=== PATIENT | male | born 1955 | race Caucasian/White ===

== ENCOUNTER 2020-09-14 10:42 | Emergency (ER) | payer OTHER ==
[~2020-09-14] VITALS: Ht 190.5 cm; Wt 90.7 kg
[2020-09-14] MEDS ORDERED: MAXIMUM D3325 MCG PO (11:09)
[2020-09-14] MEDS ORDERED: SIMVASTATIN20 MG PO (11:09)
[2020-09-14] MEDS ORDERED: LOSARTAN POTASS50 MG PO (11:09)
[2020-09-14] MEDS ORDERED: METFORMIN HCL500 M4 PO (11:09)
[2020-09-14] MEDS ORDERED: KETO10TA2 PO (15:16)
[2020-09-14] MEDS ORDERED: TAMS0.4C PO (15:16)
[2020-09-14] MEDS ORDERED: CIPRO500 MG PO (15:16)
== END 2020-09-14 15:33 | disposition home or self-care (01) ==
LOC: ER 10:42
DX: N20.1 Calculus of ureter (principal); N21.0 Calculus in bladder

== ENCOUNTER 2023-06-20 10:59 | Emergency (ER) | payer OTHER ==
[~2023-06-20] VITALS: Ht 182.9 cm; Wt 108.9 kg
[~2023-06-20 10:59] MED LIST: CIPRO500 MG PO; KETO10TA2 PO; LOSARTAN POTASS50 MG PO; MAXIMUM D3325 MCG PO; METFORMIN HCL500 M4 PO; SIMVASTATIN20 MG PO; TAMS0.4C PO
[2023-06-20 14:05] LABS: PH,URINE 5.5 (5.0-8.0); URINE APPEARANCE Cloudy; URINE BACTERIA 3881.9 uL (0.0-1933); URINE BILIRRUBIN Negative (NEGATIVE); URINE BLOOD Negative; URINE COLOR Yellow; URINE EPITHELIAL CELLS 3.8 uL (0.0-38.8); URINE GLUCOSE Negative (NEGATIVE); URINE LEUKOCYTE Large; URINE NITRATE Positive; URINE PROTEIN Negative (NEGATIVE); URINE WBC 897.9 uL (0.0-23.2)
[2023-06-20 14:17] LABS: URINE RBC 1.4 uL (0.0-20.8)
== END 2023-06-20 15:31 | disposition home or self-care (01) ==
LOC: ER 10:59
DX: N39.0 Urinary tract infection, site not specified (principal); R10.84 Generalized abdominal pain

== ENCOUNTER 2023-07-19 15:04 | Inpatient (IN) | payer OTHER ==
[~2023-07-19] VITALS: Ht 190.5 cm; Wt 108.9 kg
[2023-07-19 16:44] LABS: HEMATOCRIT 42.9 % (39.0-48.0); HEMOGLOBIN 14.1 g/dL (13-16.00); MEAN CELL VOLUME 88.9 fL (80.0-100.00); MEAN CORPUSCULAR HEMOGLOBIN 29.3 pg (27.00-32.0); MEAN CORPUSCULAR HGB CONC 32.9 g/dl (32.0-36.0); PLATELET COUNT 236 K/uL (150-450); RED BLOOD COUNT 4.83 M/uL (4.00-6.00)
[2023-07-19 16:57] LABS: INR 1.01; PARTIAL THROMBOPLASTIN TIME 27.6 SECONDS (22.0-34.0); PROTHROMBIN TIME 10.6 SECONDS (9.0-11.5)
[2023-07-19 16:59] LABS: CALCIUM 8.8 mg/dL (8.5-10.1); CREATININE SERUM 1.25 mg/dL (0.70-1.30); GFR 57.1; POTASSIUM 4.02 mEq/L (3.5-5.1)
[2023-07-19 17:19] LABS: PH,URINE 7.5 (5.0-8.0); URINE APPEARANCE Clear; URINE BILIRRUBIN Negative (NEGATIVE); URINE BLOOD Negative; URINE COLOR Yellow; URINE GLUCOSE Negative (NEGATIVE); URINE LEUKOCYTE Moderate; URINE NITRATE Positive; URINE PROTEIN 30 (NEGATIVE)
[2023-07-19 17:22] LABS: URINE EPITHELIAL CELLS 6.4 uL (0.0-38.8); URINE RBC 2.4 uL (0.0-20.8)
[2023-07-20 06:35] LABS: INR 1.03; PARTIAL THROMBOPLASTIN TIME 27.8 SECONDS (22.0-34.0); PROTHROMBIN TIME 10.8 SECONDS (9.0-11.5)
[2023-07-20 06:39] LABS: HEMATOCRIT 41.4 % (39.0-48.0); HEMOGLOBIN 14.1 g/dL (13-16.00); MEAN CELL VOLUME 87.2 fL (80.0-100.00); MEAN CORPUSCULAR HEMOGLOBIN 29.8 pg (27.00-32.0); MEAN CORPUSCULAR HGB CONC 34.1 g/dl (32.0-36.0); PLATELET COUNT 216 K/uL (150-450); RED BLOOD COUNT 4.74 M/uL (4.00-6.00); RED CELL DISTRIBUTION WIDTH 14.1 % (11.5-14.5)
[2023-07-20 08:15] LABS: ALBUMIN 3.2 gm/dL (3.4-5.0); BILIRUBIN TOTAL 0.65 mg/dL (0.3-1.2); BILIRUBIN,CONJUGATED 0.19 mg/dL (0.0-0.2); BILIRUBIN,UNCONJUGATED 0.46 mg/dL (0.0-0.6); CALCIUM 8.8 mg/dL (8.5-10.1); CREATININE SERUM 0.96 mg/dL (0.70-1.30); GFR 77.43; GLOBULINA 3.2 G/DL (2.4-3.5); POTASSIUM 3.98 mEq/L (3.5-5.1); TOTAL PROTEIN 6.4 gm/dL (6.4-8.2)
[2023-07-20 08:16] LABS: C-REACTIVE PROTEIN 0.75 MG/DL (0.00-0.29)
[2023-07-22 08:27] LABS: URINE APPEARANCE Clear; URINE BILIRRUBIN Negative (NEGATIVE); URINE BLOOD Negative; URINE COLOR Yellow; URINE GLUCOSE Negative (NEGATIVE); URINE LEUKOCYTE Small; URINE NITRATE Negative; URINE PROTEIN Negative (NEGATIVE)
[2023-07-22 08:32] LABS: URINE BACTERIA 15.1 uL (0.0-1933); URINE EPITHELIAL CELLS 4.3 uL (0.0-38.8); URINE WBC 15.1 uL (0.0-23.2)
[2023-07-22 08:50] LABS: URINE RBC 0.4 uL (0.0-20.8)
[2023-07-26] MEDS ORDERED: LEVOFLOXACIN750 MG PO (11:33)
[2023-07-26] MEDS ORDERED: PEPCID AC20 MG PO (11:33)
[2023-07-26] MEDS ORDERED: INTESTINEX680 M2 PO (11:33)
== END 2023-07-26 14:19 | disposition home or self-care (01) | DRG 540 ==
LOC: ER 15:04 → SEC-K 23:47 → MEDI 23:47
PROVIDERS: General Practice; ADMIT Internal Medicine; ATTEND Internal Medicine
PROC: BQ30YZZ Magnetic Resonance Imaging (MRI) of Right Hip using Other Contrast (ICD-10-PCS; 2023-07-20)
PROC: C710YZZ Planar Nuclear Medicine Imaging of Bone Marrow using Other Radionuclide (ICD-10-PCS; 2023-07-21)
PROC: 02HV33Z Insertion of Infusion Device into Superior Vena Cava, Percutaneous Approach (ICD-10-PCS; principal; 2023-07-26)
DX: M86.172 Other acute osteomyelitis, left ankle and foot (principal); L97.419 Non-pressure chronic ulcer of right heel and midfoot with unspecified severity; N39.0 Urinary tract infection, site not specified; L97.529 Non-pressure chronic ulcer of other part of left foot with unspecified severity; L08.9 Local infection of the skin and subcutaneous tissue, unspecified; B95.61 Methicillin susceptible Staphylococcus aureus infection as the cause of diseases classified elsewhere; B95.2 Enterococcus as the cause of diseases classified elsewhere; B96.89 Other specified bacterial agents as the cause of diseases classified elsewhere; E11.621 Type 2 diabetes mellitus with foot ulcer; Z79.4 Long term (current) use of insulin; I10 Essential (primary) hypertension; E11.69 Type 2 diabetes mellitus with other specified complication; Z20.822 Contact with and (suspected) exposure to COVID-19
CPT/HCPCS: 73725

== ENCOUNTER 2023-09-10 04:26 | Emergency (ER) | payer OTHER ==
[~2023-09-10] VITALS: Ht 190.5 cm; Wt 108.9 kg
[~2023-09-10 04:26] MED LIST changes: +INTESTINEX680 M2 PO; +LEVOFLOXACIN750 MG PO; +PEPCID AC20 MG PO
[2023-09-10 06:35] LABS: PH,URINE 6.5 (5.0-8.0); URINE APPEARANCE Clear; URINE BILIRRUBIN Negative (NEGATIVE); URINE BLOOD NHT; URINE COLOR Dark Yellow; URINE GLUCOSE Negative (NEGATIVE); URINE LEUKOCYTE Small; URINE NITRATE Negative; URINE PROTEIN 30 (NEGATIVE)
[2023-09-10 06:38] LABS: URINE BACTERIA 118.4 uL (0.0-1933); URINE EPITHELIAL CELLS 4.1 uL (0.0-38.8); URINE RBC 33.9 uL (0.0-20.8); URINE WBC 174.3 uL (0.0-23.2)
[2023-09-10 06:51] LABS: HEMATOCRIT 39.4 % (39.0-48.0); HEMOGLOBIN 13.3 g/dL (13-16.00); MEAN CELL VOLUME 86.2 fL (80.0-100.00); MEAN CORPUSCULAR HEMOGLOBIN 29.1 pg (27.00-32.0); MEAN CORPUSCULAR HGB CONC 33.8 g/dl (32.0-36.0); PLATELET COUNT 233 K/uL (150-450); RED BLOOD COUNT 4.57 M/uL (4.00-6.00); RED CELL DISTRIBUTION WIDTH 13.7 % (11.5-14.5)
[2023-09-10 07:09] LABS: CALCIUM 8.6 mg/dL (8.5-10.1); CREATININE SERUM 1.04 mg/dL (0.70-1.30); GFR 70.6; POTASSIUM 3.95 mEq/L (3.5-5.1)
== END 2023-09-10 08:20 | disposition home or self-care (01) ==
LOC: ER 04:27
DX: N13.9 Obstructive and reflux uropathy, unspecified (principal)
CPT/HCPCS: 36415; 96365; 96366; 99282; J0744; J1885

== ENCOUNTER 2023-09-14 13:51 | Emergency (ER) | payer OTHER ==
[~2023-09-14] VITALS: Ht 190.5 cm; Wt 108.9 kg
[2023-09-14] MEDS ORDERED: CIPRO100 MG (14:03)
== END 2023-09-14 16:39 | disposition home or self-care (01) ==
LOC: ER 13:53
DX: Z97.8 Presence of other specified devices (principal); R53.81 Other malaise

== ENCOUNTER 2024-10-08 11:50 | Emergency (ER) | payer OTHER ==
[~2024-10-08] VITALS: Ht 190.5 cm; Wt 95.3 kg
[~2024-10-08 11:50] MED LIST changes: +CIPRO100 MG
[2024-10-08] MEDS ORDERED: CEFTRIAXONE SODIUM 2,000 MG VIAL IV ONE (12:15)
[2024-10-08] MEDS ORDERED: CEFTRIAXONE SODIUM 2,000 MG VIAL ONE (12:29)
[2024-10-08 12:42] LABS: HEMATOCRIT 39.1 % (39.0-48.0); HEMOGLOBIN 12.9 g/dL (13-16.00); MEAN CELL VOLUME 88.2 fL (80.0-100.00); MEAN CORPUSCULAR HEMOGLOBIN 29.1 pg (27.00-32.0); PLATELET COUNT 430 K/uL (150-450); RED BLOOD COUNT 4.43 M/uL (4.00-6.00); RED CELL DISTRIBUTION WIDTH 13.8 % (11.5-14.5)
== END 2024-10-08 13:46 | disposition home or self-care (01) ==
LOC: ER 11:53
PROVIDERS: Emergency Medicine
DX: E10.621 Type 1 diabetes mellitus with foot ulcer (principal); L97.528 Non-pressure chronic ulcer of other part of left foot with other specified severity; Z79.4 Long term (current) use of insulin; Z79.85 Long-term (current) use of injectable non-insulin antidiabetic drugs
CPT/HCPCS: 11042; 36415; 71046; 96365; 99283; J0696

== ENCOUNTER 2024-10-12 10:38 | Outpatient (CLI) | payer OTHER | END 2024-10-12 11:00 | disposition home or self-care (01) | LOC: WOUND MED 10:38 | PROVIDERS: ATTEND Specialist | DX: E11.621 Type 2 diabetes mellitus with foot ulcer (principal); L97.522 Non-pressure chronic ulcer of other part of left foot with fat layer exposed; Z79.4 Long term (current) use of insulin | CPT/HCPCS: 11042; A4927; A6219; A6223 ==

== ENCOUNTER 2024-10-19 11:52 | Inpatient (IN) | payer OTHER ==
[~2024-10-19] VITALS: Ht 190.5 cm; Wt 95.3 kg
[2024-10-19] MEDS ORDERED: SIMVASTATIN40 MG PO (12:28)
[2024-10-19] MEDS ORDERED: TAMSULOSIN HCL0.4 MG PO (12:28)
[2024-10-19] MEDS ORDERED: CIPROFLOXACIN IN 5 % DEXTROSE 400 MG/200 ML PIGGYBAG IV ONE ×2 (12:59→13:00)
[2024-10-19] MEDS ORDERED: 0.9 % SODIUM CHLORIDE 1,000 ML IV SCH ×2 (13:00→19:15)
[2024-10-19 13:54] LABS: HEMATOCRIT 41.5 % (39.0-48.0); HEMOGLOBIN 13.6 g/dL (13-16.00); MEAN CELL VOLUME 87.5 fL (80.0-100.00); MEAN CORPUSCULAR HEMOGLOBIN 28.6 pg (27.00-32.0); MEAN CORPUSCULAR HGB CONC 32.7 g/dl (32.0-36.0); PLATELET COUNT 347 K/uL (150-450); RED BLOOD COUNT 4.75 M/uL (4.00-6.00); RED CELL DISTRIBUTION WIDTH 14.4 % (11.5-14.5)
[2024-10-19 14:21] LABS: CALCIUM 9.1 mg/dL (8.5-10.1); CREATININE SERUM 0.86 mg/dL (0.70-1.30); GFR 87.66; POTASSIUM 3.54 mEq/L (3.5-5.1)
[2024-10-19 15:07] LABS: INR 1.1; PARTIAL THROMBOPLASTIN TIME 29.3 SECONDS (22.0-34.0); PROTHROMBIN TIME 11.9 SECONDS (9.0-11.5)
[2024-10-19 15:41] LABS: URINE APPEARANCE Clear; URINE BILIRRUBIN Negative (NEGATIVE); URINE BLOOD Negative; URINE COLOR Yellow; URINE GLUCOSE Negative (NEGATIVE); URINE KETONE Negative (NEGATIVE); URINE LEUKOCYTE Small; URINE NITRATE Negative; URINE PROTEIN Trace (NEGATIVE); URINE UROBILINOGEN 0.2 E.U./dl
[2024-10-19 15:44] LABS: URINE BACTERIA 46.5 uL (0.0-1933); URINE EPITHELIAL CELLS 3.4 uL (0.0-38.8); URINE RBC 5.1 uL (0.0-20.8); URINE WBC 76.8 uL (0.0-23.2)
[2024-10-19 16:32] LABS: URINE CAST 0.14 uL (0.0-1.40)
[2024-10-19] MEDS ORDERED: PIPERACILLIN/TAZOBACTAM SODIUM 3.375 GM in DEXTROSE 5 % IN WATER 100 ML IV SCH (19:26)
[2024-10-19] MEDS ORDERED: DEXTROSE 50 % IN WATER 0.5 G/ML DISP.SYRIN IV PRN (19:30)
[2024-10-19] MEDS ORDERED: INSULIN LISPRO 1,000 UNIT/10 ML UNITS SUBCUTANEO PRN (19:30)
[2024-10-19] MEDS ORDERED: ACETAMINOPHEN 500 MG GEL..CAP PO PRN (19:30)
[2024-10-19 22:12] LABS: INR 1.1; PARTIAL THROMBOPLASTIN TIME 29.5 SECONDS (22.0-34.0); PROTHROMBIN TIME 11.9 SECONDS (9.0-11.5)
[2024-10-20 01:12] VITALS: BP 139/75; O2SAT 95
[2024-10-20] MEDS ORDERED: 0.9 % SODIUM CHLORIDE 10 ML VIAL IJ ONE (07:44)
[2024-10-20] MEDS ORDERED: LOSARTAN POTASSIUM 50 MG TABLET PO SCH (09:00)
[2024-10-20] MEDS ORDERED: ENOXAPARIN SODIUM 40 MG/0.4 ML SYRINGE SUBCUTANEO SCH (09:00)
[2024-10-20] MEDS ORDERED: FAMOTIDINE/PF 20 MG in 0.9 % SODIUM CHLORIDE 8 ML IV PUSH SCH (09:00)
[2024-10-20] MEDS ORDERED: TAMSULOSIN HCL 0.4 MG CAP PO SCH (09:00)
[2024-10-20 09:22] VITALS: BP 160/87; O2SAT 95
[2024-10-20] MEDS ORDERED: SIMVASTATIN 20 MG TABLET PO SCH (17:00)
[2024-10-20] MEDS ORDERED: CEFEPIME HCL 2,000 MG VIAL IV SCH (17:00)
[2024-10-20 18:03] VITALS: BP 152/78; O2SAT 97
[2024-10-20] MEDS ORDERED: VANCOMYCIN HCL 1,000 MG VIAL IV SCH (21:00)
[2024-10-21 01:38] VITALS: BP 129/84; O2SAT 98
[2024-10-21 09:34] VITALS: BP 141/77; O2SAT 95
[2024-10-21] MEDS ORDERED: levoFLOXacin 750 MG TABLET PO SCH (17:00)
[2024-10-21 17:13] VITALS: BP 132/70; O2SAT 97
[2024-10-22 01:15] VITALS: BP 138/72
[2024-10-22 05:35] LABS: HEMATOCRIT 42.6 % (39.0-48.0); MEAN CELL VOLUME 87.6 fL (80.0-100.00); MEAN CORPUSCULAR HEMOGLOBIN 28.8 pg (27.00-32.0); MEAN CORPUSCULAR HGB CONC 32.8 g/dl (32.0-36.0); PLATELET COUNT 305 K/uL (150-450); RED BLOOD COUNT 4.87 M/uL (4.00-6.00)
[2024-10-22 06:28] LABS: BILIRUBIN TOTAL 0.32 mg/dL (0.3-1.2); CALCIUM 8.9 mg/dL (8.5-10.1); CREATININE SERUM 0.94 mg/dL (0.70-1.30); GFR 79.11; GLOBULINA 3.7 G/DL (2.4-3.5); MAGNESIUM 2.1 mg/dL (1.8-2.4); PHOSPHOROUS 3.9 mg/dL (2.5-4.9); POTASSIUM 4.21 mEq/L (3.5-5.1); TOTAL PROTEIN 6.7 gm/dL (6.4-8.2)
[2024-10-22 06:40] LABS: C-REACTIVE PROTEIN 1.4 MG/DL (0.00-0.29)
[2024-10-22 07:05] LABS: ERYTHROCYTE SEDIMENTATION RATE 60 mm/hr
[2024-10-22 09:04] VITALS: BP 140/83
[2024-10-22 16:45] VITALS: BP 148/79; O2SAT 96
[2024-10-22] MEDS ORDERED: VANCOMYCIN HCL 5 MG/ML REDILUIDO IV SCH (21:00)
[2024-10-22] MEDS ORDERED: FAMOtidine 20 MG TABLET PO SCH (21:00)
[2024-10-23 00:59] VITALS: BP 128/73; O2SAT 95
[2024-10-23 09:05] VITALS: BP 120/80; O2SAT 93
[2024-10-23 16:50] VITALS: BP 115/72; O2SAT 96
[2024-10-24 01:41] VITALS: BP 132/76; O2SAT 95
[2024-10-24 09:21] VITALS: BP 162/80; O2SAT 98
[2024-10-24] MEDS ORDERED: SIMVASTATIN20 MG PO (12:20)
[2024-10-24] MEDS ORDERED: COZAAR50 MG PO (12:20)
[2024-10-24] MEDS ORDERED: TAMS0.4C PO (12:20)
[2024-10-24] MEDS ORDERED: FAMOTIDINE20 MG PO (12:21)
[2024-10-24 16:06] VITALS: BP 130/68; O2SAT 91
== END 2024-10-24 17:09 | disposition home or self-care (01) | DRG 300 ==
LOC: ER 11:52 → MEDI 20:26
PROVIDERS: Emergency Medicine; General Practice; Internal Medicine Infectious Disease; ADMIT Internal Medicine; ATTEND Internal Medicine
PROC: B54DZZZ Ultrasonography of Bilateral Lower Extremity Veins (ICD-10-PCS; 2024-10-19)
PROC: B44HZZZ Ultrasonography of Bilateral Lower Extremity Arteries (ICD-10-PCS; 2024-10-19)
PROC: 0JBR3ZZ Excision of Left Foot Subcutaneous Tissue and Fascia, Percutaneous Approach (ICD-10-PCS; principal; 2024-10-20)
PROC: BQ3FZZZ Magnetic Resonance Imaging (MRI) of Left Lower Leg (ICD-10-PCS; 2024-10-20)
PROC: BQ3FZZZ Magnetic Resonance Imaging (MRI) of Left Lower Leg (ICD-10-PCS; 2024-10-22)
PROC: 02HV33Z Insertion of Infusion Device into Superior Vena Cava, Percutaneous Approach (ICD-10-PCS; 2024-10-22)
DX: I96 Gangrene, not elsewhere classified (principal); L97.528 Non-pressure chronic ulcer of other part of left foot with other specified severity; L08.89 Other specified local infections of the skin and subcutaneous tissue; L03.032 Cellulitis of left toe; I10 Essential (primary) hypertension; E08.621 Diabetes mellitus due to underlying condition with foot ulcer; E78.5 Hyperlipidemia, unspecified; Z79.4 Long term (current) use of insulin

== ENCOUNTER 2024-11-23 10:25 | Emergency (ER) | payer OTHER ==
[~2024-11-23] VITALS: Ht 193 cm; Wt 95.3 kg
[~2024-11-23 10:25] MED LIST changes: +COZAAR50 MG PO; +FAMOTIDINE20 MG PO; +SIMVASTATIN40 MG PO; +TAMSULOSIN HCL0.4 MG PO
[2024-11-23] MEDS ORDERED: ACETAMINOPHEN 500 MG GEL..CAP PO STA (12:07)
[2024-11-23] MEDS ORDERED: KETOROLAC TROMETHAMINE 60 MG VIAL IM STA (12:07)
== END 2024-11-23 16:06 | disposition home or self-care (01) ==
LOC: ER 10:26
DX: R10.9 Unspecified abdominal pain (principal); M54.50 Low back pain, unspecified
CPT/HCPCS: 74176; 96372; 99284; J1885